=== PATIENT | male | born 1975 | race Caucasian/White ===

== ENCOUNTER 2023-10-12 23:00 | Emergency (ER) | payer MEDICAID ==
[~2023-10-12] VITALS: Ht 175.3 cm; Wt 65.0 kg
[2023-10-12 23:05] VITALS: O2SAT 98
[2023-10-12 23:20] VITALS: TEMP 98.2
[2023-10-13 00:50] VITALS: BP 126/86; PULSE 99; RESP 17
== END 2023-10-13 01:00 | disposition left against medical advice (07) ==
LOC: ER 23:17
DX: T50.7X1A Poisoning by analeptics and opioid receptor antagonists, accidental (unintentional), initial encounter (principal); F14.10 Cocaine abuse, uncomplicated; F12.10 Cannabis abuse, uncomplicated; Y92.89 Other specified places as the place of occurrence of the external cause
CPT/HCPCS: 99283